=== PATIENT | female | born 1935 | race African-American/Black ===

== ENCOUNTER 2018-08-06 14:30 | Emergency (ER) | payer BC, MEDICARE ==
[~2018-08-06] VITALS: Ht 162.6 cm; Wt 79.4 kg
--- NOTE | 2018-08-06 14:59 | NUR ---
PT IS IN ROOM #2A. DR TREJO EVALUATED THE PT.
--- NOTE | 2018-08-06 16:53 | NUR ---
PT WAS D/C'd TO HOME. D/C INSTRUCTIONS GIVEN TO THE PT AND TO HER RUTHER.
[2018-08-06 16:57] VITALS: BP 143/85
== END 2018-08-06 16:58 | disposition home or self-care (01) ==
LOC: ER 14:30
DX: M79.671 Pain in right foot (principal); L53.9 Erythematous condition, unspecified; E11.9 Type 2 diabetes mellitus without complications; Z88.0 Allergy status to penicillin
CPT/HCPCS: 73610; A4663

== ENCOUNTER 2020-07-30 16:40 | Emergency (ER) | payer BC ==
[~2020-07-30] VITALS: Ht 162.6 cm; Wt 70.3 kg
--- NOTE | 2020-07-30 16:40 | NUR ---
Dr Dixon at the bedside for MSE.
[2020-07-30] MEDS ORDERED: LIDOCAINE HCL 1% 20 ML VIAL ONE (16:48)
[2020-07-30] MEDS ORDERED: LIDOCAINE HCL 1% 20 ML VIAL TP ONE (17:00)
--- NOTE | 2020-07-30 17:10 | NUR ---
Patient is now in room 5 from ER bed 2A, for CT scan@this time
--- NOTE | 2020-07-30 17:20 | NUR ---
Pt back from Ct scan, Dr Dixon in to give results.
[2020-07-30 17:31] VITALS: BP 155/76
--- NOTE | 2020-07-30 17:33 | NUR ---
Patient discharged to home in stable condition. Written and verbal after care instructions given. Patient and pt's daughter verbalize understanding of instructions. Stressed follow up or return to ER for worsening s/s.
== END 2020-07-30 17:34 | disposition home or self-care (01) ==
LOC: ER 16:41
DX: S01.511A Laceration without foreign body of lip, initial encounter (principal); S00.83XA Contusion of other part of head, initial encounter; W18.30XA Fall on same level, unspecified, initial encounter; Y92.89 Other specified places as the place of occurrence of the external cause; G30.9 Alzheimer's disease, unspecified; F02.80 Dementia in other diseases classified elsewhere, unspecified severity, without behavioral disturbance, psychotic disturbance, mood disturbance, and anxiety; Z88.0 Allergy status to penicillin; E11.9 Type 2 diabetes mellitus without complications; H40.9 Unspecified glaucoma; F32.9 Major depressive disorder, single episode, unspecified
CPT/HCPCS: 12011; 70450; 99284; J3490; A4663